=== PATIENT | female | born 1955 | race Caucasian/White ===

== ENCOUNTER → 2019-02-24 | Outpatient (CLI) | payer BC ==
[2019-02-24 10:56] LABS: HGB 13.1 gm/dL (11.4-16.0); MCH 29.7 pg (25.0-35.0); MCV 92.9 fL (80.0-100.0); Mean Platelet Volume 7.6; Platelet Count 307 k/uL (150-450); RBC 4.41 m/uL (3.80-5.40); RDW 14.5 % (11.5-15.5); WBC 6.5 k/uL (3.8-10.6)
[2019-02-24 10:57] LABS: Appearance,Urine Clear (Clear); Bilirubin,Urine Negative (Negative); Blood,Urine Negative (Negative); Color,Urine Yellow; Glucose,Urine (UA) Negative (Negative); Ketones,Urine Negative (Negative); Leukocyte Esterase,Urine Negative (Negative); Nitrite,Urine Negative (Negative); PH, Urine 6.5 (5.0-8.0); Protein,Urine Negative (Negative); Specific Gravity,Urine 1.024 (1.001-1.035); Urobilinogen,Urine <2.0 mg/dL (<2.0)
[2019-02-24 11:13] LABS: INR 0.9 (<1.2); Partial Thromboplastin Time 24.7 sec (22.0-30.0); Prothrombin Time 9.9 sec (9.0-12.0)
[2019-02-24 16:18] LABS: Anion Gap 7.5 mmol/L (4.00-12.00); Carbon Dioxide 29.5 mmol/L (21.6-31.8); Potassium 3.7 mmol/L (3.5-5.5)
== END ==
LOC: LABWHC1 09:52
PROVIDERS: ATTEND Orthopaedic Surgery
DX: Z01.812 Encounter for preprocedural laboratory examination (principal); M17.12 Unilateral primary osteoarthritis, left knee
CPT/HCPCS: 36415; 80051; 81003; 82565; 84520; 85027; 85610; 85730; 87070

== ENCOUNTER 2019-03-06 10:41 | Day surgery (SDC) | payer BC, MEDICARE ==
[~2019-03-06 10:41] MED LIST: ACETAMINOPHEN TAB 500 MG TAB PO ONE; HYDROmorphone 0.5 MG/0.5 ML SYRINGE IVP PRN; LIDOCAINE 1% 20 ML VIAL (10MG/ML) FOR IV START INTRADERMA PRN; MELOXICAM 7.5 MG TAB PO ONE; ONDANSETRON 4 MG/2 ML VIAL IVP ONE; TRANEXAMIC ACID 1,000 MG in SODIUM CHLORIDE 0.9% 100 ML IVPB ONE; ceFAZolin IN SWFI 2 GM/20 ML SYRINGE IVP ONE
[2019-03-06] MEDS: LACTATED RINGERS 1,000 ML IV SCH ×2 (11:31→16:51)
[2019-03-06] MEDS ORDERED: MIDAZOLAM 2 MG/2 ML VIAL ONE (12:35)
[2019-03-06] MEDS ORDERED: fentaNYL (PF) 50 MCG/ML 2 ML AMP ONE (12:35)
[2019-03-06] MEDS ORDERED: TRANEXAMIC ACID 1,000 MG/10 ML VIAL ONE (12:35)
[2019-03-06] MEDS ORDERED: SODIUM CHLORIDE 0.9% 100 ML BAG ONE (12:35)
[2019-03-06] MEDS ORDERED: PROPOFOL 10 MG/ML 20 ML VIAL IV ONE (12:35)
[2019-03-06] MEDS ORDERED: ceFAZolin 3,000 MG in SODIUM CHLORIDE 0.9% IRRIGATIO 3,000 ML IRRIGATION ONE (12:39)
[2019-03-06] MEDS: ROPIVACAINE 246.25 MG, EPINEPHrine 0.5 MG, KETOROLAC 30 MG, WATER FOR INJECTION,STERILE... MISCELLANE ONE ×8 (13:08→14:32)
[2019-03-06] MEDS ORDERED: LACTATED RINGERS 1,000 ML IV ONE (13:22)
[2019-03-06] MEDS ORDERED: BISACODYL 10 MG SUPP RECTAL PRN (14:57)
[2019-03-06] MEDS ORDERED: MAGNESIUM HYDROXIDE 2,400 MG/10 ML CUP PO PRN (14:57)
[2019-03-06] MEDS ORDERED: HYDROmorphone 0.5 MG/0.5 ML SYRINGE IVP PRN ×2 (14:57)
[2019-03-06] MEDS ORDERED: NA PHOS,M-B/NA PHOS,DI-BA 133 ML ENEMA RECTAL PRN (14:57)
[2019-03-06] MEDS ORDERED: HYDROmorphone 1 MG/ML 1 ML SYRINGE IVP PRN (14:57)
[2019-03-06] MEDS ORDERED: ONDANSETRON 4 MG/2 ML VIAL IVP PRN (14:57)
[2019-03-06] MEDS ORDERED: HYDROcodone/APAP 5-325MG 1 EACH TAB PO PRN ×2 (14:57)
[2019-03-06] MEDS ORDERED: NALOXONE 0.4 MG/ML 1 ML VIAL IV PRN (14:57)
[2019-03-06] MEDS ORDERED: ROPIVACAINE 1,100 MG, SODIUM CHLORIDE 0.9% 500 ML 330 ML MISCELLANE PRN ×2 (15:15)
--- NOTE | 2019-03-06 15:51 | P.OP ---
Date of Procedure: 03/06/19 Procedure(s) Performed: PREOPERATIVE DIAGNOSIS: Left knee severe osteoarthritis with genu varum POSTOPERATIVE DIAGNOSIS: Left knee severe osteoarthritis with genu varum OPERATION: Left knee cemented total replacement arthroplasty. ANESTHESIA: Spinal ESTIMATED BLOOD LOSS: 100 ml. SET OFF BLOCKER: Nneka Hernandes PA-C (assistance with: patient positioning, retraction, exposure, hemostasis, leg positioning, implantation, irrigation, closure, dressing) COMPLICATIONS: None apparent. COMPONENTS IMPLANTED: [employer] system from [employer] INDICATIONS: Mrs. Man is a 63 year old female with a history of left knee osteoarthritis. Conservative treatment has been tried and has been unsuccessful in controlling symptoms adequately. The operation of knee replacement has been discussed at length in the office, as well as potential risks and complications. These are inclusive of, but not limited to: bleeding, infection, scarring, discomfort, blood vessel and nerve damage, need for further surgery, failure to relieve symptoms, persistence, recurrence, or worsening of problems, loosening, dislocation, wear, blood clot, pulmonary embolism, , gait dysfunction, stiffness, and other risks as discussed in the office. The patient elects to proceed and the consent form has been signed. She confirms a nickel ALLERGY, and therefore a titanium alloy implant has been called for and this planned on being utilized today. PROCEDURE: The patient was taken to the operating room and positioned on the operating room table in the supine position. Anesthesia was initiated. Care was taken to make sure that all pressure points were adequately padded. The operative lower extremity was prepped and draped in the usual aseptic fashion using ChloraPrep. Ioban drape was used for the case and the patient received intravenous antibiotics within one hour of the incision. A pneumotourniquet and leg souza were used for the case. The limb was exsanguinated with an Esmarch bandage and the tourniquet was inflated to 350 mmHg. Time-out was called confirming the patient's identity, side, procedure and administration of antibiotics and tranexamic acid, 1 g IV. The incision was then created midline directly over the knee, carried down through skin and into the subcutaneous tissues and down to fascia. Full thickness subcutaneous medial flap was developed. Medial parapatellar arthrotomy was performed and the interior of the knee was inspected. There was end-stage osteoarthritis of the knee with a mild to moderate genu varum type deformity. The fat pad was excised and proximal medial release on the tibia was completed using meticulous dissection and a curved osteotome. The anterior cruciate ligament was taken down. Note was made of significant attrition of the anterior and significant degenerative appearance of the posterior cruciate ligaments. The exposure was excellent. The knee was flexed 90 degrees and the patella was everted. A spot was chosen on the femur approximately 1 cm anterior to the posterior cruciate ligament insertion and an intramedullary hole was created within the femur. The intramedullary guide was then set to 5 degrees of valgus. The distal cutting block was attached and pinned into position. An appropriate amount of distal femoral resection was set. The oscillating saw was then used to make the distal femoral cut. This cut was confirmed to be flat with the flat end of an osteotome. The retractors were placed around the tibia and the tibial surface was ad dressed. The angle and depth of resection was adjusted using an extramedullary cutting guide. The guide had a built-in 3 degree posterior slope cut. Once the cutting guide was adjusted appropriately and in line with the axis of the tibia and confirmed to be in good position in relation to the second metatarsal and transmalleolar axis, the tibial cut was then created with protection of the posterior neurovascular structures and the collateral ligaments. The tibial cut surface was removed and sized. Femoral sizing was then accomplished using anterior referencing. Care was taken to analyze the posterior condyles for signs of deficiency or severe wear, and adjustments to the guide were made, as appropriate. 3 degree external rotation pins were placed. The cutting jig for the femur was applied to these pins. The planned cuts were further analyzed prior to performing them with the oscillating saw. No femoral notching was produced. Bone fragments were removed and the cut surfaces were finished, as necessary, with a reciprocating saw. Spacer block technique was then used to confirm that the flexion and extension gaps were equal. Soft tissue releases and adjustment of the tibial and/or femoral cuts were made, as necessary, until the gaps were equal. This included release of the posterior cruciate ligament, which was tight in this patient. The femur was then further finished for a posterior cruciate ligament substituting component. Patellar resurfacing was performed using a reamer. The size of the required patellar component was estimated and the patellar surface was then reamed down to a residual thickness which would recreate the [place] thickness with the component. The exact placement of the patellar component was adjusted for position based on preoperative x-rays and intraoperative findings. Prior to placing trial components, anesthetic solution consisting of ropivicaine with epinephrine, ketorolac, and clonidine was injected carefully and methodically in a grid pattern using aspiration technique into the soft tissue around the knee circumferentially, starting with the deeper tissues first and progressing to fascia, and then finally the skin/subcutaneous tissue. Particular care was taken when injecting the posterior capsule. The trial components were inserted. The tibial tray was allowed to self center and the patella was noted to track very well. The position of the tibial component was marked and the tibia was then finished for a stemmed tibial component. Cement was mixed on the back table and applied to the final components. Trial components were removed and the cut surfaces of the bone were pulse lavaged thoroughly and dried. Cement was then applied to the tibial surface and pressurized into the surface using finger pressurization technique. The tibial component was then applied and excess cement was removed after it was impacted securely and noted to be flush with the cut surface. In similar fashion, the cement was applied to the cut femoral surface, pressurized in using finger pressurization and the component was impacted into place. Excess cement was removed. The polyethylene spacer was then implanted and locked into position. The patellar component was then applied in similar technique and a patellar clamp was used to hold the patella in place as the cement hardened. Once the cement had fully hardened, the knee was reinspected. Any other cement extrusion was removed and final kinematic testing showed range of motion from 0 to 130 degrees with excellent stability, both medially and laterally and appropriate alignment of the leg. Patellar tracking was excellent. The knee was then thoroughly pulse lavaged with normal saline. The tourniquet was deflated and hemostasis was obtained with electrocautery and IV tranexamic acid, 1 g given prior to inflation of the tourniquet and another gram given at the time of closure. Closure was with #2 Ethibond in the fascia and supplemented with #2 Quill, 2-0 Vicryl suture was used for the subcutaneous tissues and 3-0 Quill for the skin. Dermabond/Steri-Strips were then applied. A lightly compressive dressing was applied using Webril and an Mynor wrap. The patient was then transferred to stretcher and taken to the recovery room in stable condition. Sponge and needle counts were correct.
--- NOTE | 2019-03-06 15:52 | XR ---
Left knee HISTORY: Status post left knee arthroplasty 2 views of the left knee Patient is status post left knee arthroplasty. There is anatomic alignment. Lucency in the soft tissu es is compatible with postop state. IMPRESSION: Orthopedic follow-up.
[2019-03-06 17:01] VITALS: BMI 36.2
[2019-03-06] MEDS ORDERED: ALPRAZolam 0.5 MG TAB PO PRN (17:57)
[2019-03-06] MEDS ORDERED: MELATONIN 5 MG TABLET PO PRN (17:57)
[2019-03-06] MEDS ORDERED: ALBUTEROL NEBULIZED 2.5 MG/3 ML INHALATION PRN (18:00)
--- NOTE | 2019-03-06 18:03 | P.CONS ---
History of Present Illness - Reason for Consult Consult date: 03/06/19 HTN Requesting physician: Ronald Costa - Chief Complaint left knee pain - History of Present Illness Patient is a 63-year-old female with a past medical history of hypertension, arthritis, GERD, asthma, irritable bowel syndrome who presented for elective left total knee arthroplasty. She tolerated the procedure well without any immediate postoperative complications. Patient seen and examined at bedside. She is already been up into the bathroom. Her pain is currently well controlled. She does not have any nausea or vomiting. She denies any numbness or tingling in her left leg. She states that she try conservative therapy within the scope and pain medications but failed this. She therefore proceeded her total arthroplasty. She was taking Tylenol 3 rarely at home as needed. She was not using any assistive devices. She is on disability secondary to asthma. She denies any recent cough, cold, fever, flu, nausea, vomiting, dysuria, or constipation. Review of Systems Pertinent positives and negatives as discussed in HPI, a complete review of systems was performed and all other systems are negative. Past Medical History Past Medical History: Asthma, Cancer, COPD, GERD/Reflux, Hypertension, Sleep Apnea/CPAP/BIPAP Additional Past Medical History / Comment(s): IBS, HX OF BASAL & SQUAMOUS CELL SKIN CANCER, POSITIVE FOR BRCA-2 GENE (STELLA MASTECTOMY)., HX OF UTI'S, VARICOSE VEINS History of Any Multi-Drug Resistant Organisms: None Reported Past Surgical History: Cholecystectomy, Hysterectomy, Orthopedic Surgery Additional Past Surgical History / Comment(s): TOTAL HYSTERECTOMY, LEFT EAR MASTOID & TYPANOPLASTY, bilateral wrist surgery for tenosynovitis, STELLA MASTECTOMY WITH IMPLANTS AND IMPLANTS LATER REMOVED., LEFT KNEE ARTHROSCOPY. Past Anesthesia/Blood Transfusion Reactions: Postoperative Nausea & Vomiting (PONV) Additional Past Anesthesia/Blood Transfusion Reaction / Comm: STATES PONV POSSIBLY CAUSED BY PAIN MEDICATION Past Psychological History: Anxiety, Panic Disorder Smoking Status: Former smoker Past Alcohol Use History: Rare Additional Past Alcohol Use History / Comment(s): SMOKED FOR APPROX 13 YEARS, SMOKED IN HER 20'S- 1 PPD OR MORE. Past Drug Use History: None Reported - Past Family History Father Family Medical History: Cancer, Hypertension Additional Family Medical History / Comment(s): BREAST CANCER Medications and Allergies Home Medications Medication Instructions Recorded Confirmed Type ALPRAZolam [Xanax] 0.5 - 1 mg PO BID PRN 03/01/19 03/06/19 History Acetaminophen [Tylenol Extra 500 mg PO DIRECTED PRN 03/01/19 03/06/19 History Strength] Acetaminophen with Codeine 1 tab PO DIRECTED PRN 03/01/19 03/06/19 History [Tylenol w/codeine #3] Albuterol Inhaler [Ventolin Hfa 1 - 2 puff INHALATION RT-Q6H PRN 03/01/19 03/06/19 History Inhaler] Albuterol Sulfate [Proair Hfa] 1 - 2 puff INHALATION Q6HR PRN 03/01/19 03/06/19 History Azelastine HCl [Astepro] 2 spray NASAL DAILY 03/01/19 03/06/19 History Beclomethasone Dipropionate [Qnasl] 2 spray EA NOSTRIL DAILY 03/01/19 03/06/19 History Budesonide-Formot 160-4.5 Mcg 2 puff INHALATION BID 03/01/19 03/06/19 History [Symbicort 160-4.5 Mcg Inhaler] Cholecalciferol (Vitamin D3) 5,000 unit PO DAILY 03/01/19 03/06/19 History [Vitamin D3] Cranberry Fruit Extract [Cranberry] 450 mg PO DAILY 03/01/19 03/06/19 History Estradiol [Vagifem] 10 mcg PO DIRECTED 03/01/19 03/06/19 History Eszopiclone [Lunesta] 3 mg PO HS PRN 03/01/19 03/06/19 History Garlic 1 each PO BID 03/01/19 03/06/19 History Hyoscyamine Sulfate [Levsin] 0.125 mg PO DIRECTED PRN 03/01/19 03/06/19 History Krill/Om-3/Dha/Epa/Phospho/Ast 350 mg PO DAILY 03/01/19 03/06/19 History [[place]-3 Krill Oil 300 mg Sfgl] L.acidoph,Paracasei, B.lactis 2 each PO DAILY 03/01/19 03/06/19 History [Probiotic] Levocetirizine Dihydrochloride 5 mg PO DAILY 03/01/19 03/06/19 History [Xyzal] Losartan/Hydrochlorothiazide 1 each PO DAILY@1300 03/01/19 03/06/19 History [Losartan-Hctz 100-25 mg Tab] Melatonin 5 mg PO HS PRN 03/01/19 03/06/19 History Montelukast [Singulair] 10 mg PO HS 03/01/19 03/06/19 History Pantoprazole [Protonix] 20 mg PO DAILY 03/01/19 03/06/19 History Papaya [Papaya Enzyme] 1 each PO PC-TID 03/01/19 03/06/19 History Red Yeast Rice 600 mg PO DAILY 03/01/19 03/06/19 History amLODIPine [Norvasc] 5 mg PO DAILY@1300 03/01/19 03/06/19 History Aspirin [Adult Low Dose Aspirin EC] 81 mg PO DAILY #1 tablet. 03/06/19 Rx HYDROcodone/APAP 5-325MG [[place] 1 - 2 each PO Q4-6H PRN #50 tab 03/06/19 Rx 5-325] Rivaroxaban [Xarelto] 10 mg PO DAILY #5 tab 03/06/19 Rx Sennosides-Docusate Sodium 1 tab PO BID #60 tablet 03/06/19 Rx [Senokot-S] Allergies Allergy/AdvReac Type Severity Reaction Status Date / Time clarithromycin [From Biaxin] Allergy Severe HIVES, Verified 03/01/19 13:58 ITCHING nickel Allergy Severe HIVES, Verified 03/01/19 13:58 ITCHING perfume Allergy Severe EXTREME Verified 03/01/19 14:02 COUGHING bupropion [From Wellbutrin] Allergy Unknown HIVES, Verified 03/01/19 14:02 ITCHING clonazepam [From Klonopin] Allergy Unknown HIVES, Verified 03/01/19 14:02 ITCHING sertraline [From Zoloft] Allergy Unknown HIVES, Verified 03/01/19 14:02 ITCHING venlafaxine [From Effexor] Allergy Unknown HIVES, Verified 03/01/19 14:02 ITCHING enalapril AdvReac Unknown COUGHING Verified 03/01/19 14:02 METAL Allergy Unknown HIVES , Uncoded 03/01/19 14:02 ITCHING WOOL ALCOHOL Allergy Itching Uncoded 03/06/19 11:11 Physical Exam Osteopathic Statement: *. No significant issues noted on an osteopathic structural exam other than those noted in the History and Physical/Consult. Vitals: Vital Signs Temp Pulse Resp BP Pulse Ox 03/06/19 16:00 69 16 112/60 98 03/06/19 15:45 68 16 111/55 98 03/06/19 15:28 69 16 110/62 92 L 03/06/19 15:12 72 16 108/57 94 L 03/06/19 14:57 98.9 F 78 16 100/53 95 03/06/19 12:07 80 16 146/69 03/06/19 11:06 98.7 F 80 16 135/65 95 03/06/19 11:00 16 Intake and Output 03/06/19 03/06/19 03/06/19 06:59 14:59 22:59 Intake Total 1401 100 Output Total 50 Balance 1351 100 Intake: IV 1401 100 Output: Estimated Blood Loss 50 General: non toxic, no distress, appears at stated age, obese Derm: no unusual rashes/lesions no unusual ecchymoses, warm, dry Head: atraumatic, normocephalic, symmetric Eyes: EOMI, no lid lag, anicteric sclera, pupils equal round reactive to light ENT: Nose and ears atraumatic, no thrush, no pharyngeal erythema Neck: No thyromegaly, no cervical lymphadenopathy, trachea midline, supple Mouth: no lip lesion, mucus membranes moist Cardiovascular: S1S2 reg, no murmur, positive posterior tibial pulse bilateral, no edema, capillary refill less than 2 seconds Lungs: CTA bilateral, no rhonchi, no rales , no accessory muscle use Abdominal: soft, nontender to palpation, no guarding, no appreciable organomegaly, normal bowel sounds Ext: ACEI wrap over left leg, no gross muscle atrophy, muscle strength 5 out of 5 in upper extremities grossly, no contractures, Neuro: CN II-XI grossly intact, light touch intact all 4 extremities, finger to nose within normal limits, Psych: Alert, oriented, appropriate affect Assessment and Plan Assessment: Patient is a 63-year-old female admitted for elective left total knee arthroplasty Asthma - resume symbicort, singulair, nasal prays - prn albuterol HTN, controlled - norvasc Postoperative pain secondary to left knee arthroplasty -Patient intolerant to morphine in the past secondary to severe nausea and vomiting. - antiemetics - prn norco - PT/OT Irritable bowel syndrome - Hold Levsin at this point in time GERD -PPI Obesity with BMI 35.5 -Outpatient structured weight loss Thank you for allowing us to participate in the care of this patient. Do not hesitate to contact us with questions. Someone can be reached from the [facility] hospitalist group at all hours of the day at [phone]. Patient is on the red team
[2019-03-06] MEDS: SYMBICORT 160-4.5 MCG INHALER INHALATION SCH (19:30)
[2019-03-06] MEDS: ceFAZolin IN SWFI 2 GM/20 ML SYRINGE IVP SCH (20:55)
[2019-03-06] MEDS ORDERED: MONTELUKAST 10 MG TAB PO SCH (21:00)
[2019-03-06] MEDS ORDERED: SENNOSIDES-DOCUSATE SODIUM 1 EACH TAB PO SCH (21:00)
[2019-03-06] MEDS: ONDANSETRON 4 MG/2 ML VIAL IVP PRN (21:08)
[2019-03-07] MEDS: LACTATED RINGERS 1,000 ML IV SCH ×3 (01:24→12:57)
[2019-03-07] MEDS: ceFAZolin IN SWFI 2 GM/20 ML SYRINGE IVP SCH (04:30)
[2019-03-07] MEDS: ONDANSETRON 4 MG/2 ML VIAL IVP PRN (04:36)
[2019-03-07] MEDS ORDERED: PANTOPRAZOLE 40 MG TABLET PO SCH (07:30)
[2019-03-07] MEDS ORDERED: RIVAROXABAN 10 MG TAB PO SCH (09:00)
[2019-03-07] MEDS ORDERED: CHOLECALCIFEROL 1,000 UNIT TAB PO SCH (09:00)
[2019-03-07] MEDS ORDERED: CRANBERRY FRUIT EXTRACT PO SCH (09:00)
[2019-03-07] MEDS ORDERED: AZELASTINE 137MCG/SPRAY NASAL SCH (09:00)
[2019-03-07] MEDS ORDERED: ESTRADIOL 10 MCG PO SCH (09:00)
[2019-03-07] MEDS ORDERED: MELOXICAM 7.5 MG TAB PO SCH (09:00)
[2019-03-07] MEDS ORDERED: FLUTICASONE 50MCG/SPRAY NASAL 16GM EA NOSTRIL SCH (09:00)
[2019-03-07] MEDS: SYMBICORT 160-4.5 MCG INHALER INHALATION SCH (09:28)
[2019-03-07 09:31] LABS: HCT 37.4 % (34.0-46.0); HGB 12.1 gm/dL (11.4-16.0); MCH 30.1 pg (25.0-35.0); MCHC 32.3 g/dL (31.0-37.0); MCV 93.3 fL (80.0-100.0); Mean Platelet Volume 7.7; Platelet Count 245 k/uL (150-450); RBC 4.01 m/uL (3.80-5.40); RDW 14.3 % (11.5-15.5)
--- NOTE | 2019-03-07 09:52 | P.DS ---
Providers Expected date of discharge: 03/07/19 Attending physician: Ronald Costa Consults: 03/06/19 14:57 Consult Physician Routine Consulting Provider: Greta Petty Consult Reason/Comments: Medical management Do you want consulting provider notified?: Yes Primary care physician: Sara Oliveira - Discharge Diagnosis(es) (1) Osteoarthritis of left knee Current Visit: Yes Status: Acute (2) Status post total left knee replacement Current Visit: Yes Status: Acute Hospital Course: This is a 63-year-old female who was last seen with complaint of continued left knee pain. The patient has a known history of degenerative arthritis of the left knee and presents to discuss surgical options. After discussion and consideration the patient elects to proceed with total left knee arthroplasty. The patient is seen preoperatively by her primary care physician and cleared for surgery. The patient is admitted to [facility] for total left knee arthroplasty. The procedures performed without complication or sequelae. He is doing well postoperatively. Vital signs are stable at discharge. Labs are stable at discharge. the patient is ambulating well with walker with minimal assistance. I have ordered a hinged knee brace for posterior stability with ambulation. The patient is discharged to home on postop day #1 pending medical clearance. Please see orders and refer to the med rec for accurate list of medications. Plan - Discharge Summary Discharge Rx Participant: Yes New Discharge Prescriptions: New Aspirin [Adult Low Dose Aspirin EC] 81 mg PO DAILY #1 tablet.dr Stanley-Docusate Sodium [Senokot-S] 1 tab PO BID #60 tablet Rivaroxaban [Xarelto] 10 mg PO DAILY #5 tab Acetaminophen-Codeine 300-30mg [Tylenol w/codeine #3] 1 - 2 tab PO Q4-6H PRN 7 Days #50 tablet PRN Reason: Pain No Action Beclomethasone Dipropionate [Qnasl] 2 spray EA NOSTRIL DAILY Hyoscyamine Sulfate [Levsin] 0.125 mg PO DIRECTED PRN PRN Reason: IBS Levocetirizine Dihydrochloride [Xyzal] 5 mg PO DAILY Garlic 1 each PO BID Pantoprazole [Protonix] 20 mg PO DAILY amLODIPine [Norvasc] 5 mg PO DAILY@1300 ALPRAZolam [Xanax] 0.5 - 1 mg PO BID PRN PRN Reason: Anxiety Montelukast [Singulair] 10 mg PO HS Eszopiclone [Lunesta] 3 mg PO HS PRN PRN Reason: Insomnia Azelastine HCl [Astepro] 2 spray NASAL DAILY Albuterol Inhaler [Ventolin Hfa Inhaler] 1 - 2 puff INHALATION RT-Q6H PRN PRN Reason: Shortness Of Breath Albuterol Sulfate [Proair Hfa] 1 - 2 puff INHALATION Q6HR PRN PRN Reason: Shortness Of Breath Budesonide-Formot 160-4.5 Mcg [Symbicort 160-4.5 Mcg Inhaler] 2 puff INHALATION BID Losartan/Hydrochlorothiazide [Losartan-Hctz 100-25 mg Tab] 1 each PO DAILY @1300 Estradiol [Vagifem] 10 mcg PO DIRECTED Red Yeast Rice 600 mg PO DAILY Papaya [Papaya Enzyme] 1 each PO PC-TID Cholecalciferol (Vitamin D3) [Vitamin D3] 5,000 unit PO DAILY Melatonin 5 mg PO HS PRN PRN Reason: Insomnia L.acidoph,Paracasei, B.lactis [Probiotic] 2 each PO DAILY Krill/Om-3/Dha/Epa/Phospho/Ast [[place]-3 Krill Oil 300 mg Sfgl] 350 mg PO DAILY Cranberry Fruit Extract [Cranberry] 450 mg PO DAILY Acetaminophen with Codeine [Tylenol w/codeine #3] 1 tab PO DIRECTED PRN PRN Reason: Pain Acetaminophen [Tylenol Extra Strength] 500 mg PO DIRECTED PRN PRN Reason: Pain Discharge Medication List ALPRAZolam [Xanax] 0.5 - 1 mg PO BID PRN 03/01/19 [History] Acetaminophen [Tylenol Extra Strength] 500 mg PO DIRECTED PRN 03/01/19 [History] Acetaminophen with Codeine [Tylenol w/codeine #3] 1 tab PO DIRECTED PRN 03/01/19 [History] Albuterol Inhaler [Ventolin Hfa Inhaler] 1 - 2 puff INHALATION RT-Q6H PRN 0 03/01/19 [History] Albuterol Sulfate [Proair Hfa] 1 - 2 puff INHALATION Q6HR PRN 03/01/19 [History] Azelastine HCl [Astepro] 2 spray NASAL DAILY 03/01/19 [History] Beclomethasone Dipropionate [Qnasl] 2 spray EA NOSTRIL DAILY 03/01/19 [History] Budesonide-Formot 160-4.5 Mcg [Symbicort 160-4.5 Mcg Inhaler] 2 puff INHALATION BID 03/01/19 [History] Cholecalciferol (Vitamin D3) [Vitamin D3] 5,000 unit PO DAILY 03/01/19 [History] Cranberry Fruit Extract [Cranberry] 450 mg PO DAILY 03/01/19 [History] Estradiol [Vagifem] 10 mcg PO DIRECTED 03/01/19 [History] Eszopiclone [Lunesta] 3 mg PO HS PRN 03/01/19 [History] Garlic 1 each PO BID 03/01/19 [History] Hyoscyamine Sulfate [Levsin] 0.125 mg PO DIRECTED PRN 03/01/19 [History] Krill/Om-3/Dha/Epa/Phospho/Ast [[place]-3 Krill Oil 300 mg Sfgl] 350 mg PO DAILY 03/01/19 [History] L.acidoph,Paracasei, B.lactis [Probiotic] 2 each PO DAILY 03/01/19 [History] Levocetirizine Dihydrochloride [Xyzal] 5 mg PO DAILY 03/01/19 [History] Losartan/Hydrochlorothiazide [Losartan-Hctz 100-25 mg Tab] 1 each PO DAILY@1300 03/01/19 [History] Melatonin 5 mg PO HS PRN 03/01/19 [History] Montelukast [Singulair] 10 mg PO HS 03/01/19 [History] Pantoprazole [Protonix] 20 mg PO DAILY 03/01/19 [History] Papaya [Papaya Enzyme] 1 each PO PC-TID 03/01/19 [History] Red Yeast Rice 600 mg PO DAILY 03/01/19 [History] amLODIPine [Norvasc] 5 mg PO DAILY@1300 03/01/19 [History] Aspirin [Adult Low Dose Aspirin EC] 81 mg PO DAILY #1 tablet. 03/06/19 [Rx] Rivaroxaban [Xarelto] 10 mg PO DAILY #5 tab 03/06/19 [Rx] Sennosides-Docusate Sodium [Senokot-S] 1 tab PO BID #60 tablet 03/06/19 [Rx] Acetaminophen-Codeine 300-30mg [Tylenol w/codeine #3] 1 - 2 tab PO Q4-6H PRN 7 Days #50 tablet 03/07/19 [Rx] Follow up Appointment(s)/Referral(s): Nneka Hernandes, PAC [PHYSICIAN WEBSITE PROJECT MANAGER] - 03/22/19 1:00 pm Ambulatory/Diagnostic Orders: Continuous Passive Motion (CPM) Machine [DME.AMB1] Time Frame: 3 Weeks, Facility: [facility], Location: Case Management Activity/Diet/Wound Care/Special Instructions: May bear wt as tolerated w walker. May shower if no drainage from incision. Maintain thigh high stocking when up. Hinged knee brace when ambulating.
--- NOTE | 2019-03-07 10:42 | P.PN ---
Subjective Progress Note Date: 03/07/19 Principal diagnosis: knee pain Patient is a 63-year-old female with a past medical history of hypertension, arthritis, GERD, asthma, irritable bowel syndrome who presented for elective left total knee arthroplasty. She tolerated the procedure well without any immediate postoperative complications. Patient seen and examined at bedside. No chest pain, SOB, or constipation. Up and ambulating. Pain well controlled. Having some nausea due to norco- will order zofran for home. Objective - Vital Signs Vital signs: Vital Signs Temp 98.1 F 03/07/19 01:34 Pulse 82 03/07/19 01:34 Resp 17 03/07/19 01:34 BP 118/78 03/07/19 01:34 Pulse Ox 89 L 03/07/19 01:34 Intake & Output 03/06/19 03/07/19 03/07/19 18:59 06:59 18:59 Intake Total 1501 Output Total 50 Balance 1451 Intake: IV 1501 Output: Estimated Blood Loss 50 Other: Voiding Method Toilet # Voids 2 - Exam General: non toxic, no distress, appears at stated age Derm: left knee with dressing in place, warm, dry Head: atraumatic, normocephalic, symmetric Eyes: EOMI, no lid lag, anicteric sclera Mouth: no lip lesion, mucus membranes moist Cardiovascular: S1S2 reg, no murmur, positive posterior tibial pulse bilateral, Lungs: decreased bs b/l bilateral, no rhonchi, no rales , no accessory muscle use Abdominal: soft, nontender to palpation, no guarding, no appreciable organomegaly Ext: no gross muscle atrophy, no edema, no contractures Neuro: CN II-XI grossly intact, no focal neuro deficits Psych: Alert, oriented, appropriate affect - Labs CBC & Chem 7: 03/07/19 08:20 Labs: Abnormal Lab Results - Last 24 Hours (Table) 03/07/19 Range/Units 08:20 WBC 12.0 H (3.8-10.6) k/uL Assessment and Plan Assessment: Patient is a 63-year-old female admitted for elective left total knee arthroplasty Asthma - Continue symbicort, singulair, nasal prays - prn albuterol Nausea - known intolerance to narcotics - prn zofran on discharge. HTN, controlled - norvasc Postoperative pain secondary to left knee arthroplasty -Patient intolerant to morphine in the past secondary to severe nausea and vo miting. - antiemetics - prn tylenol #3 - PT/OT Irritable bowel syndrome - Hold Levsin at this point in time GERD -PPI Obesity with BMI 35.5 -Outpatient structured weight loss Thank you for allowing us to participate in the care of this patient. Medically optimized for discharge when deemed appropriate per ortho.
--- NOTE | 2019-03-07 11:01 | P.PN ---
Progress Note - Text 03/07 636am 63-year-old female status post total needle replacement by Dr. Costa. Patient has an On-Q pump for postop pain control with a VAS of 3 this morning and the solution running at 8 mL an hour plan to continue On-Q pump infusion
--- NOTE | 2019-03-07 11:15 | P.ONQ ---
Anesthesiology Proc Note - PNB - Peripheral Nerve Block Performed Left Adductor Canal Infusion Time Out Performed: Yes Procedure Start Time: 11:59 Procedure Stop Time: 12:09 Indication: Acute Post-Operative Pain, Requested by physician Sedation Type: Sedate with meaningful contact maintained Preparation: Sterile Dressing Position: Supine Catheter: Indwelling Needle Types: On-Q Needle Size: 100mm (4") Needle Gauge: 21 Technique: Ultrasound (ropi .5% 20cc) Blood Aspirated: No Pain Paresthesia on Injection Noted: No Resistance on Injection: Normal Events: Uneventful and Well Tolerated
[2019-03-07 11:46] VITALS: BP 133/79; PULSE 90; RESP 20; TEMP 98.6
[2019-03-07] MEDS ORDERED: Acetaminophen-Codeine 300-30mg TAB PO PRN (11:54)
[2019-03-07] MEDS: amLODIPine 5 MG TAB PO SCH ×2 (12:48→12:56)
[2019-03-07] MEDS: LOSARTAN-HCTZ 50-12.5 MG 1 EACH TAB PO SCH ×2 (12:48→12:56)
== END 2019-03-07 13:32 | disposition home health service (06) ==
LOC: OR 10:41 → EDSTATUS 12:30 → 4SSUR 14:45 → OR 03-07 13:32
PROVIDERS: ATTEND Orthopaedic Surgery
DX: M17.12 Unilateral primary osteoarthritis, left knee (principal); M21.162 Varus deformity, not elsewhere classified, left knee; I10 Essential (primary) hypertension; E66.9 Obesity, unspecified; Z68.35 Body mass index [BMI] 35.0-35.9, adult; J44.9 Chronic obstructive pulmonary disease, unspecified; F41.9 Anxiety disorder, unspecified; K21.9 Gastro-esophageal reflux disease without esophagitis; Z87.891 Personal history of nicotine dependence; Z90.710 Acquired absence of both cervix and uterus; Z85.828 Personal history of other malignant neoplasm of skin; Z85.3 Personal history of malignant neoplasm of breast; Z90.13 Acquired absence of bilateral breasts and nipples; G47.30 Sleep apnea, unspecified; Z99.89 Dependence on other enabling machines and devices; K58.9 Irritable bowel syndrome, unspecified; F41.0 Panic disorder [episodic paroxysmal anxiety]; Z80.3 Family history of malignant neoplasm of breast; Z79.51 Long term (current) use of inhaled steroids; Z79.899 Other long term (current) drug therapy; Z79.01 Long term (current) use of anticoagulants; Z79.82 Long term (current) use of aspirin; Z88.8 Allergy status to other drugs, medicaments and biological substances; Z91.048 Other nonmedicinal substance allergy status; Z88.5 Allergy status to narcotic agent; Z91.09 Other allergy status, other than to drugs and biological substances
CPT/HCPCS: 27447; 94640 ×2; 97161; 64447; 85027; 88300; 73560; C1713; C1776; C1772; J2250; J0171; J2405 ×2; J0690 ×3; J3010; J1885; J2795; J2704

== ENCOUNTER 2019-12-10 15:26 | Emergency (ER) | payer BC, MEDICARE ==
[2019-12-10 15:40] VITALS: TEMP 97.8
--- NOTE | 2019-12-10 16:49 | ED ---
Arrhythmia/Palpitations HPI - General Chief Complaint: Arrhythmia/Palpitations Stated Complaint: irregular heartrate,ekg Time Seen by Provider: 12/10/19 16:12 Source: patient, RN notes reviewed, old records reviewed Mode of arrival: ambulatory Limitations: no limitations - History of Present Illness Initial Comments: This is a 64-year-old female DF for evaluation patient was unsafe for evaluation regards to arrhythmia palpitations seen in urgent care and sent ER for further management. Patient has history of asthma with no shortness of breath and d iaphoresis no recent chest pain nausea vomiting or diarrhea. Recent medications no drugs or alcohol abuse. Patient is having palpitations currently no shortness of breath no chest MD Complaint: rapid heart beat, "heart racing", "skipped beats" -: hour(s) Context: occurred during rest Arrhythmia History: other (none, siilar symptoms though) Associated Symptoms: denies other symptoms Treatments Prior to Arrival: other (none) - Related Data Home Medications Medication Instructions Recorded Confirmed ALPRAZolam [Xanax] 0.5 mg PO DAILY PRN 03/01/19 12/10/19 Azelastine HCl [Astepro] 2 spray NASAL HS 03/01/19 12/10/19 Beclomethasone Dipropionate [Qnasl] 2 spray EA NOSTRIL DAILY 03/01/19 12/10/19 Budesonide-Formot 160-4.5 Mcg 2 puff INHALATION RT-BID 03/01/19 12/10/19 [Symbicort 160-4.5 Mcg Inhaler] Estradiol [Vagifem] 10 mcg PO WESA 03/01/19 12/10/19 Hyoscyamine Sulfate [Levsin] 0.125 mg PO DIRECTED PRN 03/01/19 12/10/19 Krill/Om-3/Dha/Epa/Phospho/Ast 1 cap PO DAILY 03/01/19 12/10/19 [[place]-3 Krill Oil 300 mg Sfgl] L.acidoph,Paracasei, B.lactis 1 cap PO DAILY 03/01/19 12/10/19 [Probiotic] Levocetirizine Dihydrochloride 5 mg PO DAILY 03/01/19 12/10/19 [Xyzal] Melatonin 5 mg PO HS 03/01/19 12/10/19 Montelukast [Singulair] 10 mg PO HS 03/01/19 12/10/19 Papaya [Papaya Enzyme] 1 tab PO PC-TID 03/01/19 12/10/19 Red Yeast Rice 600 mg PO DAILY 03/01/19 12/10/19 Albuterol Sulfate [Proventil Hfa] 1 puff INHALATION RT-Q6H PRN 12/10/19 12/10/19 Cholecalciferol [Vitamin D3 (25 5,000 unit PO DAILY 12/10/19 12/10/19 Mcg = 1000 Iu)] Cranberry With Vitamin C 500mg 1 tab PO W/LUNCH 12/10/19 12/10/19 Losartan Potassium [Cozaar] 100 mg PO DAILY 12/10/19 12/10/19 Pantoprazole Sodium 10 mg PO DAILY 12/10/19 12/10/19 Zolpidem Tartrate [Ambien] 10 mg PO HS 12/10/19 12/10/19 amLODIPine [Norvasc] 10 mg PO DAILY 12/10/19 12/10/19 Allergies Allergy/AdvReac Type Severity Reaction Status Date / Time clarithromycin [From Biaxin] Allergy Severe HIVES, Verified 12/10/19 18:26 ITCHING nickel Allergy Severe HIVES, Verified 12/10/19 18:26 ITCHING perfume Allergy Severe EXTREME Verified 12/10/19 18:26 COUGHING bupropion [From Wellbutrin] Allergy Unknown HIVES, Verified 12/10/19 18:26 ITCHING clonazepam [From Klonopin] Allergy Unknown HIVES, Verified 12/10/19 18:26 ITCHING sertraline [From Zoloft] Allergy Unknown HIVES, Verified 12/10/19 18:26 ITCHING venlafaxine [From Effexor] Allergy Unknown HIVES, Verified 12/10/19 18:26 ITCHING enalapril AdvReac Unknown COUGHING Verified 12/10/19 18:26 METAL Allergy Unknown HIVES , Uncoded 03/01/19 14:02 ITCHING WOOL ALCOHOL Allergy Itching Uncoded 03/06/19 11:11 Review of Systems ROS Statement: Those systems with pertinent positive or pertinent negative responses have been documented in the HPI. ROS Other: All systems not noted in ROS Statement are negative. Past Medical History Past Medical History: Asthma, Cancer, COPD, GERD/Reflux, Hypertension, Sleep Apnea/CPAP/BIPAP Additional Past Medical History / Comment(s): IBS, HX OF BASAL & SQUAMOUS CELL SKIN CANCER, POSITIVE FOR BRCA-2 GENE (STELLA MASTECTOMY)., HX OF UTI'S, VARICOSE VEINS History of Any Multi-Drug Resistant Organisms: None Reported Past Surgical History: Cholecystectomy, Hysterectomy, Orthopedic Surgery Additional Past Surgical History / Comment(s): TOTAL HYSTERECTOMY, LEFT EAR MASTOID & TYPANOPLASTY, bilateral wrist surgery for tenosynovitis, STELLA MASTECTOMY WITH IMPLANTS AND IMPLANTS LATER REMOVED., LEFT KNEE ARTHROSCOPY., colonoscopy Past Anesthesia/Blood Transfusion Reactions: Postoperative Nausea & Vomiting (PONV) Additional Past Anesthesia/Blood Transfusion Reaction / Comment(s): STATES PONV POSSIBLY CAUSED BY PAIN MEDICATION Past Psychological History: Anxiety, Depression, Panic Disorder Smoking Status: Former smoker Past Alcohol Use History: Rare Past Drug Use History: None Reported - Past Family History Father Family Medical History: Cancer, Hypertension Additional Family Medical History / Comment(s): BREAST CANCER General Exam Limitations: no limitations General appearance: alert, in no apparent distress, anxious Head exam: Present: atraumatic, normocephalic, normal inspection Eye exam: Present: normal appearance, PERRL, EOMI. Absent: scleral icterus, c onjunctival injection, periorbital swelling ENT exam: Present: normal exam, mucous membranes moist Neck exam: Present: normal inspection. Absent: tenderness, meningismus, lymphadenopathy Respiratory exam: Present: wheezes. Absent: normal lung sounds bilaterally, respiratory distress, rales, rhonchi, stridor Cardiovascular Exam: Present: regular rate, normal rhythm, normal heart sounds. Absent: systolic murmur, diastolic murmur, rubs, gallop, clicks GI/Abdominal exam: Present: soft, normal bowel sounds. Absent: distended, tenderness, guarding, rebound, rigid Extremities exam: Present: normal inspection, full ROM, normal capillary refill. Absent: tenderness, pedal edema, joint swelling, calf tenderness Back exam: Present: normal inspection Neurological exam: Present: alert, oriented X3, CN II-XII intact Psychiatric exam: Present: normal affect, normal mood Skin exam: Present: warm, dry, intact, normal color. Absent: rash Course Vital Signs 12/10/19 12/10/19 12/10/19 15:36 15:54 16:00 Temperature 97.8 F Pulse Rate 92 Respiratory 18 Rate Blood Pressure 148/92 153/83 O2 Sat by Pulse 98 98 96 Oximetry 12/10/19 12/10/19 12/10/19 16:30 17:00 17:30 Temperature Pulse Rate 86 82 Respiratory 16 16 Rate Blood Pressure 146/85 143/78 149/76 O2 Sat by Pulse 96 96 Oximetry 12/10/19 12/10/19 18:00 18:30 Temperature Pulse Rate 86 84 Respiratory 18 18 Rate Blood Pressure 157/94 141/87 O2 Sat by Pulse Oximetry - Reevaluation(s) Reevaluation #1: 12/10/19 16:49 medical record is reviewed Reevaluation #2: 12/10/19 19:02 Patient's symptoms remained Reevaluation #3: 12/10/19 19:20 Patient's symptoms are feeling good right now, symptoms improved relatively asymptomatic informed of results patient will follow-up on outpatient basis EKG Findings - EKG Comments: EKG Findings:: EKG shows sinus rhythm rate of 92, NV 164, QRS 92, QTC 469 Medical Decision Making - Medical Decision Making 64 female DF for palpitations and arrhythmia testing here in the ER is within normal limits EKG is normal patient was given a follow-up to cardiology for palpitations and arrhythmia. Patient can be discharged home - Lab Data Result diagrams: 12/10/19 16:02 12/10/19 16:02 Lab Results 12/10/19 12/10/19 12/10/19 Range/Units 15:53 16:02 16:02 WBC 10.0 (3.8-10.6) k/uL RBC 4.75 (3.80-5.40) m/uL Hgb 14.0 (11.4-16.0) gm/dL Hct 43.3 (34.0-46.0) % MCV 91.2 (80.0-100.0) fL MCH 29.5 (25.0-35.0) pg MCHC 32.3 (31.0-37.0) g/dL RDW 14.1 (11.5-15.5) % Plt Count 320 (150-450) k/uL Neutrophils % 70 % Lymphocytes % 19 % Monocytes % 6 % Eosinophils % 3 % Basophils % 1 % Neutrophils # 7.0 (1.3-7.7) k/uL Lymphocytes # 1.9 (1.0-4.8) k/uL Monocytes # 0.6 (0-1.0) k/uL Eosinophils # 0.3 (0-0.7) k/uL Basophils # 0.1 (0-0.2) k/uL PT (9.0-12.0) sec INR (<1.2) APTT (22.0-30.0) sec D-Dimer (<0.60) mg/L FEU Sodium 139 (137-145) mmol/L Potassium 4.0 (3.5-5.1) mmol/L Chloride 102 (98-107) mmol/L Carbon Dioxide 29 (22-30) mmol/L Anion Gap 8 mmol/L BUN 16 (7-17) mg/dL Creatinine 0.84 (0.52-1.04) mg/dL Est GFR (CKD-EPI)AfAm 86 (>60 ml/min/1.73 sqM) Est GFR (CKD-EPI)NonAf 74 (>60 ml/min/1.73 sqM) Glucose 103 H (74-99) mg/dL Plasma Lactic Acid [place] (0.7-2.0) mmol/L Calcium 9.8 (8.4-10.2) mg/dL Phosphorus 4.4 (2.5-4.5) mg/dL Magnesium 2.2 (1.6-2.3) mg/dL Total Bilirubin 0.8 (0.2-1.3) mg/dL AST 27 (14-36) U/L ALT 28 (4-34) U/L Alkaline Phosphatase 153 H (38-126) U/L Creatine Kinase 62 (30-135) U/L CK-MB (CK-2) (0.0-2.4) ng/mL Troponin I (0.000-0.034) ng/mL NT-Pro-B Natriuret Pep pg/mL Total Protein 8.1 (6.3-8.2) g/dL Albumin 4.5 (3.5-5.0) g/dL TSH 2.820 (0.465-4.680) mIU/L Urine Color Yellow Urine Appearance Clear (Clear) Urine pH 7.0 (5.0-8.0) Ur Specific [place] 1.005 (1.001-1.035) Urine Protein Negative (Negative) Urine Glucose (UA) Negative (Negative) Urine Ketones Negative (Negative) Urine Blood Negative (Negative) Urine Nitrite Negative (Negative) Urine Bilirubin Negative (Negative) Urine Urobilinogen <2.0 (<2.0) mg/dL Ur Leukocyte Esterase Negative (Negative) 12/10/19 12/10/19 12/10/19 Range/Units 16:02 16:02 16:02 WBC (3.8-10.6) k/uL RBC (3.80-5.40) m/uL Hgb (11.4-16.0) gm/dL Hct (34.0-46.0) % MCV (80.0-100.0) fL MCH (25.0-35.0) pg MCHC (31.0-37.0) g/dL RDW (11.5-15.5) % Plt Count (150-450) k/uL Neutrophils % % Lymphocytes % % Monocytes % % Eosinophils % % Basophils % % Neutrophils # (1.3-7.7) k/uL Lymphocytes # (1.0-4.8) k/uL Monocytes # (0-1.0) k/uL Eosinophils # (0-0.7) k/uL Basophils # (0-0.2) k/uL PT 10.3 (9.0-12.0) sec INR 1.0 (<1.2) APTT 24.7 (22.0-30.0) sec D-Dimer 0.75 H (<0.60) mg/L FEU Sodium (137-145) mmol/L Potassium (3.5-5.1) mmol/L Chloride (98-107) mmol/L Carbon Dioxide (22-30) mmol/L Anion Gap mmol/L BUN (7-17) mg/dL Creatinine (0.52-1.04) mg/dL Est GFR (CKD-EPI)AfAm (>60 ml/min/1.73 sqM) Est GFR (CKD-EPI)NonAf (>60 ml/min/1.73 sqM) Glucose (74-99) mg/dL Plasma Lactic Acid [place] (0.7-2.0) mmol/L Calcium (8.4-10.2) mg/dL Phosphorus (2.5-4.5) mg/dL Magnesium (1.6-2.3) mg/dL Total Bilirubin (0.2-1.3) mg/dL AST (14-36) U/L ALT (4-34) U/L Alkaline Phosphatase (38-126) U/L Creatine Kinase (30-135) U/L CK-MB (CK-2) 0.8 (0.0-2.4) ng/mL Troponin I <0.012 (0.000-0.034) ng/mL NT-Pro-B Natriuret Pep 115 pg/mL Total Protein (6.3-8.2) g/dL Albumin (3.5-5.0) g/dL TSH (0.465-4.680) mIU/L Urine Color Urine Appearance (Clear) Urine pH (5.0-8.0) Ur Specific [place] (1.001-1.035) Urine Protein (Negative) Urine Glucose (UA) (Negative) Urine Ketones (Negative) Urine Blood (Negative) Urine Nitrite (Negative) Urine Bilirubin (Negative) Urine Urobilinogen (<2.0) mg/dL Ur Leukocyte Esterase (Negative) 12/10/19 Range/Units 16:57 WBC (3.8-10.6) k/uL RBC (3.80-5.40) m/uL Hgb (11.4-16.0) gm/dL Hct (34.0-46.0) % MCV (80.0-100.0) fL MCH (25.0-35.0) pg MCHC (31.0-37.0) g/dL RDW (11.5-15.5) % Plt Count (150-450) k/uL Neutrophils % % Lymphocytes % % Monocytes % % Eosinophils % % Basophils % % Neutrophils # (1.3-7.7) k/uL Lymphocytes # (1.0-4.8) k/uL Monocytes # (0-1.0) k/uL Eosinophils # (0-0.7) k/uL Basophils # (0-0.2) k/uL PT (9.0-12.0) sec INR (<1.2) APTT (22.0-30.0) sec D-Dimer (<0.60) mg/L FEU Sodium (137-145) mmol/L Potassium (3.5-5.1) mmol/L Chloride (98-107) mmol/L Carbon Dioxide (22-30) mmol/L Anion Gap mmol/L BUN (7-17) mg/dL Creatinine (0.52-1.04) mg/dL Est GFR (CKD-EPI)AfAm (>60 ml/min/1.73 sqM) Est GFR (CKD-EPI)NonAf (>60 ml/min/1.73 sqM) Glucose (74-99) mg/dL Plasma Lactic Acid [place] 0.8 (0.7-2.0) mmol/L Calcium (8.4-10.2) mg/dL Phosphorus (2.5-4.5) mg/dL Magnesium (1.6-2.3) mg/dL Total Bilirubin (0.2-1.3) mg/dL AST (14-36) U/L ALT (4-34) U/L Alkaline Phosphatase (38-126) U/L Creatine Kinase (30-135) U/L CK-MB (CK-2) (0.0-2.4) ng/mL Troponin I (0.000-0.034) ng/mL NT-Pro-B Natriuret Pep pg/mL Total Protein (6.3-8.2) g/dL Albumin (3.5-5.0) g/dL TSH (0.465-4.680) mIU/L Urine Color Urine Appearance (Clear) Urine pH (5.0-8.0) Ur Specific [place] (1.001-1.035) Urine Protein (Negative) Urine Glucose (UA) (Negative) Urine Ketones (Negative) Urine Blood (Negative) Urine Nitrite (Negative) Urine Bilirubin (Negative) Urine Urobilinogen (<2.0) mg/dL Ur Leukocyte Esterase (Negative) - Radiology Data Radiology results: report reviewed (Chest x-ray is negative for acute disease CTA negative), image reviewed Disposition Clinical Impression: Palpitations, Tachycardia Disposition: HOME SELF-CARE Condition: Good Instructions (If sedation given, give patient instructions): Heart Palpitations (ED) Is patient prescribed a controlled substance at d/c from ED?: No Referrals: Sara Oliveira DO [Primary Care Provider] - 1-2 days Niko Mathias MD [STAFF PHYSICIAN] - 1-2 days
[2019-12-10] MEDS ORDERED: SODIUM CHLORIDE 0.9% 1,000 ML IV STA (16:50)
[2019-12-10 17:05] LABS: Basophils # (A) 0.1 k/uL (0-0.2); Basophils % (A) 1 %; Eosinophils # (A) 0.3 k/uL (0-0.7); Eosinophils % (A) 3 %; HCT 43.3 % (34.0-46.0); Lymphocytes # (A) 1.9 k/uL (1.0-4.8); Lymphocytes % (A) 19 %; MCH 29.5 pg (25.0-35.0); MCHC 32.3 g/dL (31.0-37.0); MCV 91.2 fL (80.0-100.0); Mean Platelet Volume 8.2; Monocytes # (A) 0.6 k/uL (0-1.0); Monocytes % (A) 6 %; Neutrophils % (A) 70 %; Platelet Count 320 k/uL (150-450); RBC 4.75 m/uL (3.80-5.40); RDW 14.1 % (11.5-15.5)
[2019-12-10 17:13] LABS: Appearance,Urine Clear (Clear); Bilirubin,Urine Negative (Negative); Blood,Urine Negative (Negative); Color,Urine Yellow; Glucose,Urine (UA) Negative (Negative); Ketones,Urine Negative (Negative); Protein,Urine Negative (Negative); Specific Gravity,Urine 1.005 (1.001-1.035); Urobilinogen,Urine <2.0 mg/dL (<2.0)
[2019-12-10 17:14] LABS: Leukocyte Esterase,Urine Negative (Negative); Nitrite,Urine Negative (Negative)
[2019-12-10 17:18] LABS: Albumin 4.5 g/dL (3.5-5.0); Calcium 9.8 mg/dL (8.4-10.2); Magnesium 2.2 mg/dL (1.6-2.3); Partial Thromboplastin Time 24.7 sec (22.0-30.0); Phosphorus 4.4 mg/dL (2.5-4.5); Prothrombin Time 10.3 sec (9.0-12.0); Total Bilirubin 0.8 mg/dL (0.2-1.3); Total Protein 8.1 g/dL (6.3-8.2)
[2019-12-10 17:19] LABS: D-Dimer 0.75 mg/L FEU (<0.60)
--- NOTE | 2019-12-10 17:20 | XR ---
EXAMINATION TYPE: XR chest 2V DATE OF EXAM: 12/10/2019 COMPARISON: NONE TECHNIQUE: PA and lateral views submitted. HISTORY: Weakness FINDINGS: The lungs are clear and there is no pneumothorax, pleural effusion, or focal pneumonia. Hyperinflat ion suggests COPD. No overt failure. Hypertrophic and degenerative change of the spine. IMPRESSION: 1. No acute process.
[2019-12-10 17:32] LABS: Creatine Kinase MB 0.8 ng/mL (0.0-2.4)
[2019-12-10 17:36] LABS: Troponin I <0.012 ng/mL (0.000-0.034)
--- NOTE | 2019-12-10 19:13 | CT ---
EXAMINATION TYPE: CT angio chest DATE OF EXAM: 12/10/2019 COMPARISON: None HISTORY: SOB CT DLP: 456.6 mGycm Automated exposure control for dose reduction was used. CONTRAST: Performed with IV Contrast, patient injected with 78cc mL of Isovue 370. Multiple axial sections were obtained from the thoracic inlet to the diaphragm with intravenous contr ast. There are 3-D post processed images. There is mild pulmonary emphysema. The lungs are clear of consolidation. There is no evidence of a pu lmonary mass. There is mild subsegmental atelectasis left lower lobe. There is no pleural effusion. T here is no pericardial effusion. There is normal contrast opacification of the pulmonary arteries. There are no filling defects. There are no hilar masses. There is no mediastinal adenopathy. Thoracic aorta appears intact. There i s no aneurysm or dissection. Bony thorax is intact. IMPRESSION: Negative exam. No evidence of pulmonary embolism.
[2019-12-10 19:58] VITALS: BP 144/73; PULSE 83; RESP 17
== END 2019-12-10 19:58 | disposition home or self-care (01) ==
LOC: EC 15:26
DX: R00.0 Tachycardia, unspecified (principal); R00.2 Palpitations; J44.9 Chronic obstructive pulmonary disease, unspecified; I10 Essential (primary) hypertension; K21.9 Gastro-esophageal reflux disease without esophagitis; K58.9 Irritable bowel syndrome, unspecified; G47.30 Sleep apnea, unspecified; Z79.51 Long term (current) use of inhaled steroids; Z79.899 Other long term (current) drug therapy; Z87.891 Personal history of nicotine dependence; Z91.048 Other nonmedicinal substance allergy status; Z88.8 Allergy status to other drugs, medicaments and biological substances; Z88.1 Allergy status to other antibiotic agents; Z85.828 Personal history of other malignant neoplasm of skin; Z90.13 Acquired absence of bilateral breasts and nipples; Z99.89 Dependence on other enabling machines and devices; Z82.49 Family history of ischemic heart disease and other diseases of the circulatory system
CPT/HCPCS: 36415; 93005; 85379; 83880; 80053; 82550; 82553; 83605; 83735; 84100; 84443; 84484; 85025; 85610; 85730; 81003; 71046; 71275; 99285; 96360; Q9967